=== PATIENT | male | born 1995 | race Caucasian/White ===

== ENCOUNTER 2020-03-12 15:06 | Emergency (ER) | payer OTHER ==
[~2020-03-12] VITALS: Ht 175.3 cm; Wt 106.6 kg
--- NOTE | 2020-03-12 15:10 | NUR ---
[id number], c/o right foot pain s/p tripped and fall 10/10 pain scale while playing soccer. Patient a/ox4, breathing even and unlabored, no sob noted, needs attended. Kept comfortable.
--- NOTE | 2020-03-12 15:18 | NUR ---
seen and examined by dr. navarro.
--- NOTE | 2020-03-12 15:23 | NUR ---
tomato grader at bedside for xray.
[2020-03-12] MEDS ORDERED: HYDROCODONE/APAP 10/325MG 1 EA TABLET ONE (15:41)
--- NOTE | 2020-03-12 15:42 | NUR ---
S/p right ankle reduction by dDr. Campos. x-ray done.
[2020-03-12] MEDS ORDERED: HYDROCODONE/APAP 10/325MG 1 EA TABLET PO ONE (16:00)
[2020-03-12 16:43] VITALS: BP 129/70
--- NOTE | 2020-03-12 16:43 | NUR ---
Patient discharged to home in stable condition. Written and verbal after care instructions given. Patient verbalizes understanding of instruction.
== END 2020-03-12 16:55 | disposition home or self-care (01) ==
LOC: ER 15:08
DX: S93.04XA Dislocation of right ankle joint, initial encounter (principal); W01.0XXA Fall on same level from slipping, tripping and stumbling without subsequent striking against object, initial encounter; Y93.66 Activity, soccer; Y92.322 Soccer field as the place of occurrence of the external cause; Y99.8 Other external cause status
CPT/HCPCS: 73610-TC